=== PATIENT | male | born 1945 | race Caucasian/White ===

== ENCOUNTER 2016-04-10 20:30 | Emergency (ER) | payer MEDICARE, OTHER ==
[~2016-04-10 20:30] MED LIST: ATEN100T PO; BUPR100T4 PO; CLON0.1T PO; OMEP20TA PO; PARO40TA2 PO; ROPI1TAB PO; TAMS0.4C4 PO
[2016-04-10 20:34] VITALS: BP 146/93; PULSE 78; RESP 20; TEMP 97.8; TEMP 98.2; O2SAT 95
[2016-04-10 21:13] LABS: AUTOMATED NEUTROPHIL # 11.4 TH/MM3 (1.8-7.7); BASOPHIL # 0.1 TH/MM3 (0-0.2); BASOPHIL % 0.8 % (0.0-2.0); EOSINOPHIL # 0.3 TH/MM3 (0-0.4); EOSINOPHIL % 1.9 % (0.0-4.0); HEMATOCRIT 43.4 % (39.0-51.0); HEMO FLAGS DIFF FINAL; LYMPH % 19.9 % (9.0-44.0); LYMPHOCYTE # 3.4 TH/MM3 (1.0-4.8); MEAN CELL VOLUME 97.3 FL (80.0-100.0); MEAN CORPUSCULAR HEMOGLOBIN 33.5 PG (27.0-34.0); MEAN CORPUSCULAR HGB CONC 34.4 % (32.0-36.0); MONO % 10.6 % (0.0-8.0); NEUT % 66.8 % (16.0-70.0); PLATELET COUNT 221 TH/MM3 (150-450); RED BLOOD COUNT 4.46 MIL/MM3 (4.50-5.90); RED CELL DISTRIBUTION WIDTH 14.5 % (11.6-17.2)
[2016-04-10 21:30] LABS: ANION GAP 9 MEQ/L (5-15)
[2016-04-10 21:34] LABS: ALKALINE PHOSPHATASE 86 U/L (45-117); ALT (GPT) 24 U/L (12-78); AST (GOT) 19 U/L (15-37); BICARBONATE 27.5 MEQ/L (21.0-32.0); BLOOD UREA NITROGEN 12 MG/DL (7-18); CHLORIDE 103 MEQ/L (98-107); GLOMERULAR FILTRATION RATE 88 ML/MIN (>89); POTASSIUM 3.6 MEQ/L (3.5-5.1); SODIUM (NA) 139 MEQ/L (136-145); TOTAL BILIRUBIN ADULT 1.2 MG/DL (0.2-1.0)
[2016-04-10 21:42] LABS: ACETAMINOPHEN LESS THAN 2.0 MCG/ML (10.0-30.0)
[2016-04-11 00:32] LABS: AMPHETAMINE, URINE NEG (NEG); BARBITURATES, URINE NEG (NEG); COCAINE, URINE NEG (NEG)
--- NOTE | 2016-04-11 00:46 | RADRPT ---
EXAM DATE/TIME: 04/11/2016 00:11 [facility] COMPARISON: CT BRAIN W/O CONTRAST, February 26, 2015, 20:09. INDICATIONS : Trauma; fell and hit forehead. RADIATION DOSE: 56.35 CTDIvol (mGy) MEDICAL HISTORY : Hepatitis C. Hepatitis B. Hypertension. SURGICAL HISTORY : Prostatectomy. Splenectomy. ENCOUNTER: Initial ACUITY: 1 day PAIN SCALE: 2/10 LOCATION: cranial TECHNIQUE: Multiple contiguous axial images were obtained of the head. Using automated exposure control and adj ustment of the mA and/or kV according to patient size, radiation dose was kept as low as reasonably a chievable to obtain optimal diagnostic quality images. FINDINGS: CEREBRUM: The ventricles and cortical sulci are mildly widened. No evidence of midline shift, mass lesion, hem orrhage or acute infarction. There is an old lacunar infarct in the posterior left basal ganglia. No extra-axial fluid collections are seen. POSTERIOR FOSSA: The cerebellum and brainstem are intact. The 4th ventricle is midline. The cerebellopontine angle i s unremarkable. EXTRACRANIAL: The visualized portion of the orbits is intact. There is right frontal scalp swelling. SKULL: The patient is status post right craniotomy. No evidence of skull fracture. CONCLUSION: 1. No acute intracranial abnormalities seen. 2. Left basal ganglia lacunar infarct. 3. Mild right frontal scalp swelling. Shashank Castaneda MD on April 11, 2016 at 0:42 Board Certified Radiologist. This report was verified electronically.
--- NOTE | 2016-04-11 01:01 | PD ---
HPI Chief Complaint: Alcohol/Drug Intoxication Time Seen by Provider: 20:46 Travel History International Travel<30 days: No Contact w/Intl Traveler<30days: No Traveled to known affect area: No History of Present Illness HPI The patient is 70 years old. He arrives as a niño act. He evidently took extra Xanax tonight and drank vodka. Upon attempting to step out of bed he fell forward striking his forehead. He has no specific medical complaints in the ER. His girlfriend called EMS after fall occurred. Evidently the patient has a history of substance abuse. He took his girlfriend's Xanax. PFSH Past Medical History Blood Disorders: No Depression: Yes Heart Rhythm Problems: No Cancer: No Cardiovascular Problems: Yes High Cholesterol: No Chest Pain: No Congestive Heart Failure: No Diminished Hearing: No Endocrine: No Gastrointestinal Disorders: Yes (hep C and B) Genitourinary: Yes Hepatitis: Yes (c) Hypertension: Yes Immune Disorder: No Musculoskeletal: No Psychiatric: No Reproductive: Yes (BPH) Respiratory: No Immunizations Current: No Past Surgical History Genitourinary Surgery: Yes (prostate removed) Other Surgery: Yes (74 spleen removed , plate in head ) Social History Alcohol Use: Yes (1/2 gallon vodka daily) Tobacco Use: Yes (2 cigs a day ) Substance Use: Yes (suboxone) Allergies-Medications (Allergen,Severity, Reaction): Coded Allergies: No Known Allergies (Unverified , 04/10/16) Reported Meds & Prescriptions Reported Meds & Active Scripts Active Reported Paroxetine (Paroxetine HCl) 40 Mg Tab 40 Mg PO DAILY Bupropion HCl 100 Mg Tab 100 Mg PO HS Omeprazole 20 Mg Tab 20 Mg PO DAILY Ropinirole 1 Mg Tab 1 Mg PO BID Tamsulosin (Tamsulosin HCl) 0.4 Mg Cap 0.4 Mg PO HS Clonidine (Clonidine HCl) 0.1 Mg Tab 0.1 Mg PO TID Atenolol 100 Mg Tab 100 Mg PO DAILY Review of Systems Except as stated in HPI: all other systems reviewed are Neg Physical Exam Narrative GENERAL: 70-year-old male, well-nourished well-developed no acute distress SKIN: Warm and dry. HEAD: Atraumatic. Normocephalic. Trace contusion and abrasion about the forehead. EYES: Pupils equal and round. No scleral icterus. No injection or drainage. ENT: No nasal bleeding or discharge. Mucous membranes pink and moist. NECK: Trachea midline. No JVD. CARDIOVASCULAR: Regular rate and rhythm. No murmur appreciated. RESPIRATORY: No accessory muscle use. Clear to auscultation. Breath sounds equal bilaterally. GASTROINTESTINAL: Abdomen soft, non-tender, nondistended. Hepatic and splenic margins not palpable. MUSCULOSKELETAL: No obvious deformities. No clubbing. No cyanosis. No edema. NEUROLOGICAL: Awake and alert. No obvious cranial nerve deficits. Motor grossly within normal limits. Normal speech. PSYCHIATRIC: Appropriate mood and affect; insight and judgment normal. Data Data Last Documented VS Vital Signs Date Time Temp Pulse Resp B/P Pulse Ox O2 Delivery O2 Flow Rate FiO2 04/10/16 20:34 98.2 78 20 146/93 95 Vital signs reviewed Orders Complete Blood Count With Diff (04/10/16 20:46) Comprehensive Metabolic Panel (04/10/16 20:46) Iv Access Insert/Monitor (04/10/16 20:46) Ecg Monitoring (04/10/16 20:46) Psych Screen (04/10/16 20:46) Drug Screen, Random Urine (04/10/16 20:46) Alcohol (Ethanol) (04/10/16 20:46) Salicylates (Aspirin) (04/10/16 20:46) Tylenol (Acetaminophen) (04/10/16 20:46) Ct Brain W/O Iv Contrast(Rout) (04/10/16 23:46) Labs Laboratory Tests Test 04/10/16 04/10/16 20:50 22:00 White Blood Count 17.0 TH/MM3 Red Blood Count 4.46 MIL/MM3 Hemoglobin 14.9 GM/DL Hematocrit 43.4 % Mean Corpuscular Volume 97.3 FL Mean Corpuscular Hemoglobin 33.5 PG Mean Corpuscular Hemoglobin 34.4 % Concent Red Cell Distribution Width 14.5 % Platelet Count 221 TH/MM3 Mean Platelet Volume 10.5 FL Neutrophils (%) (Auto) 66.8 % Lymphocytes (%) (Auto) 19.9 % Monocytes (%) (Auto) 10.6 % Eosinophils (%) (Auto) 1.9 % Basophils (%) (Auto) 0.8 % Neutrophils # (Auto) 11.4 TH/MM3 Lymphocytes # (Auto) 3.4 TH/MM3 Monocytes # (Auto) 1.8 TH/MM3 Eosinophils # (Auto) 0.3 TH/MM3 Basophils # (Auto) 0.1 TH/MM3 CBC Comment DIFF FINAL Differential Comment Sodium Level 139 MEQ/L Potassium Level 3.6 MEQ/L Chloride Level 103 MEQ/L Carbon Dioxide Level 27.5 MEQ/L Anion Gap 9 MEQ/L Blood Urea Nitrogen 12 MG/DL Creatinine 0.86 MG/DL Estimat Glomerular Filtration 88 ML/MIN Rate Random Glucose 85 MG/DL Calcium Level 8.3 MG/DL Total Bilirubin 1.2 MG/DL Aspartate Amino Transf 19 U/L (AST/SGOT) Alanine Aminotransferase 24 U/L (ALT/SGPT) Alkaline Phosphatase 86 U/L Total Protein 7.2 GM/DL Albumin 3.2 GM/DL Salicylates Level LESS THAN 1.7 MG/DL Acetaminophen Level LESS THAN 2.0 MCG/ML Ethyl Alcohol Level LESS THAN 3 MG/DL Urine Opiates Screen NEG Urine Barbiturates Screen NEG Urine Amphetamines Screen NEG Urine Benzodiazepines Screen POS Urine Cocaine Screen NEG Urine Cannabinoids Screen NEG MDM Medical Decision Making Medical Screen Exam Complete: Yes Emergency Medical Condition: Yes Medical Record Reviewed: Yes Differential Diagnosis Altered mental status/psychosis due to infection/environmental exposure/ metabolic abnormality, polypharmacy, alcohol abuse/intoxication, illicit or prescribed drug abuse, malingering/secondary gain, non-organic psychiatric disease Narrative Course The history of present illness, ROS, physical exam, review of records and medical workup performed for today's visit have reasonably safely excluded organic etiologies for the patient's presenting complaint. We will continue to monitor the patient carefully in the ER until time of evaluation by the psychiatry service. We are available for any additional medical assistance if needed during the patient's ER course. Disposition per discretion of psychiatry is appreciated. CBC & BMP Diagram 04/10/16 20:50 LFTs normal Urine toxicology positive for benzodiazepines Alcohol negative Diagnosis Primary Impression: Fall Qualified Code: W19.XXXA - Fall, initial encounter Additional Impression: Benzodiazepine misuse Ottoniel Al MD Apr 11, 2016 01:01
[2016-04-11 01:02] VITALS: BP 191/96; PULSE 75; RESP 16; O2SAT 96
[2016-04-11 03:41] VITALS: BP 156/89; PULSE 75; RESP 14; O2SAT 96
[2016-04-11 06:18] VITALS: BP 144/79; PULSE 70; RESP 17; TEMP 98.9; O2SAT 98
--- NOTE | 2016-04-11 10:40 | PD ---
History of Present Illness Chief Complaint: Alcohol/Drug Intoxication Time Seen by Provider: 10:10 Travel History International Travel<30 Days: No Contact w/Intl Traveler<30days: No Known affected area: No Legal Status Legal Status: Jacques Act Jacques Act Signed By: MIGUELITO GUTIÉRREZ POLICE History of Present Illness: History of Present Illness HPI The patient is 70 year old male with history of alcohol dependence and depression who presents as a BA initiated by DEBBIE. As per the report the patient' s girlfriend called EMS after he took some Xanax along with vodka and sustained a fall. He was BA as he was found intoxicated. Patient denied that this was a suicide attempt. Patient has had no previous contact with [facility] psychiatry dept. He was admitted in May of 2015 for detoxification as a recommendation from Dr. Galdamez his career specialist. This morning the patient is wake, alert and oriented. His speech is slight slurred as well as he is walking with a slight limp. He reports that he has a dx of cerebral palsy and that this is his baseline. There are no tremors. No psychosis and no luis. He denies any suicidal ideation, intent or plan. He alleges that he has been sober x 8 months and that yesterday was the first time that he drank. He is active in AA. He denies any depression and claims he took his girlfriend's Xanax " to go to sleep". Staff is instructed to contact his girlfriend to obtain further information. PFSH Past Medical History Blood Disorders: No Depression: Yes Heart Rhythm Problems: No Cancer: No Cardiovascular Problems: Yes High Cholesterol: No Chest Pain: No Congestive Heart Failure: No Diminished Hearing: No Endocrine: No Gastrointestinal Disorders: Yes (hep C and B) Genitourinary: Yes Hepatitis: Yes (c) Hypertension: Yes Immune Disorder: No Musculoskeletal: No Psychiatric: No Reproductive: Yes (BPH) Respiratory: No Immunizations Current: No Past Surgical History Genitourinary Surgery: Yes (prostate removed) Other Surgery: Yes (74 spleen removed , plate in head ) Psychiatric History Psychiatric History Hx Psychiatric Treatment: HX: DEPRESSION being tretaed by his PCP. On Wellbutrin and Paxil History of Inpatient Treatment: No Guns or firearms in home: No Social History Single male. Born in [place] In [place] 11 years. retired heavy truck mechanic. Hx Alcohol Use: Yes (1/2 gallon vodka daily) Hx Tobacco Use: Yes (2 cigs a day ) Hx Substance Use: Yes (ALCOHOL) Hx of Substance Use Treatment: Yes ([facility] x 3. ) Family Psychiatric History Negative Allergies-Medications (Allergen,Severity, Reaction): Coded Allergies: No Known Allergies (Unverified , 04/10/16) Reported Meds & Prescriptions Reported Meds & Active Scripts Active Reported Paroxetine (Paroxetine HCl) 40 Mg Tab 40 Mg PO DAILY Bupropion HCl 100 Mg Tab 100 Mg PO HS Omeprazole 20 Mg Tab 20 Mg PO DAILY Ropinirole 1 Mg Tab 1 Mg PO BID Tamsulosin (Tamsulosin HCl) 0.4 Mg Cap 0.4 Mg PO HS Clonidine (Clonidine HCl) 0.1 Mg Tab 0.1 Mg PO TID Atenolol 100 Mg Tab 100 Mg PO DAILY Review of Systems Constitutional: DENIES: Diaphoretic episodes, Fatigue, Fever, Weight gain, Weight loss, Chills, Dizziness, Change in appetite, Night Sweats Endocrine: DENIES: Heat/cold intolerance, Polydipsia, Polyuria, Polyphagia Eyes: DENIES: Blurred vision, Diplopia, Eye inflammation, Eye pain, Vision loss , Photosensitivity, Double Vision Ears, nose, mouth, throat: DENIES: Tinnitus, Hearing loss, Vertigo, Nasal discharge, Oral lesions, Throat pain, Hoarseness, Ear Pain, Running Nose, Epistaxis, Sinus Pain, Toothache, Odynophagia Respiratory: DENIES: Apneas, Cough, Snoring, Wheezing, Hemoptysis, Sputum production, Shortness of breath Cardiovascular: DENIES: Chest pain, Palpitations, Syncope, Dyspnea on Exertion , PND, Lower Extremity Edema, Orthopnea, Claudication Gastrointestinal: DENIES: Abdominal pain, Black stools, Bloody stools, Constipation, Diarrhea, Nausea, Vomiting, Difficulty Swallowing, Anorexia Genitourinary: DENIES: Sexual dysfunction, Urinary frequency, Urinary incontinence, Urgency, Hematuria, Dysuria, Nocturia, Penile Discharge, Testicular Pain, Testicular Swelling Musculoskeletal: COMPLAINS OF: Muscle aches Integumentary: DENIES: Abnormal pigmentation, Nail changes, Pruritus, Rash Hematologic/lymphatic: DENIES: Bruising, Lymphadenopathy Immunologic/allergic: DENIES: Eczema, Urticaria Neurologic: COMPLAINS OF: Abnormal gait, Speech Problems (sl slurred) Psychiatric: COMPLAINS OF: Depression Exam Alert: Yes [place]: Person (ox4) Mood: Calm Affect: Euthymic Speech: Clear, Logical Eye Contact: Normal Memory Intact: Comment (no gross abnormality) Delusions: No Suicidal: Ideation (denies any) Homicidal: Ideation (denies) Insight/Judgement fair. poor MDM Medical Decision Making Medical Record Reviewed: Yes Assessment/Plan 70 year old male with history of alcohol dependence who after reported 8 months of sobriety drank 2 glasses of vodka . Later in the evening he took 2 Xanax in order to fall asleep. He fell and his girlfriend called as he had la laceration. Patient denies that he took the Xanax as a suicidal gesture. he denies any suicidal or homicidal ideation, intent or plan at this time. He is requesting discharge and does not meet criteria for BA. BA will be lifted. Discharge to home Follow up with outpatient care. Abstinence is recommended. Orders Complete Blood Count With Diff (04/10/16 20:46) Comprehensive Metabolic Panel (04/10/16 20:46) Iv Access Insert/Monitor (04/10/16 20:46) Ecg Monitoring (04/10/16 20:46) Psych Screen (04/10/16 20:46) Drug Screen, Random Urine (04/10/16 20:46) Alcohol (Ethanol) (04/10/16 20:46) Salicylates (Aspirin) (04/10/16 20:46) Tylenol (Acetaminophen) (04/10/16 20:46) Ct Brain W/O Iv Contrast(Rout) (04/10/16 23:46) Diet Regular Basic (04/11/16 Breakfast) Diet Regular Basic (04/11/16 Lunch) Results Vital Signs Date Time Temp Pulse Resp B/P Pulse Ox O2 Delivery O2 Flow Rate FiO2 04/11/16 06:18 98.9 70 17 144/79 98 04/11/16 03:41 75 14 156/89 96 Room Air 04/11/16 01:02 75 16 191/96 96 Nasal Cannula 2 04/10/16 20:34 98.2 78 20 146/93 95 Laboratory Tests Test 04/10/16 04/10/16 20:50 22:00 White Blood Count 17.0 Red Blood Count 4.46 Hemoglobin 14.9 Hematocrit 43.4 Mean Corpuscular Volume 97.3 Mean Corpuscular Hemoglobin 33.5 Mean Corpuscular Hemoglobin 34.4 Concent Red Cell Distribution Width 14.5 Platelet Count 221 Mean Platelet Volume 10.5 Neutrophils (%) (Auto) 66.8 Lymphocytes (%) (Auto) 19.9 Monocytes (%) (Auto) 10.6 Eosinophils (%) (Auto) 1.9 Basophils (%) (Auto) 0.8 Neutrophils # (Auto) 11.4 Lymphocytes # (Auto) 3.4 Monocytes # (Auto) 1.8 Eosinophils # (Auto) 0.3 Basophils # (Auto) 0.1 CBC Comment DIFF FINAL Differential Comment Sodium Level 139 Potassium Level 3.6 Chloride Level 103 Carbon Dioxide Level 27.5 Anion Gap 9 Blood Urea Nitrogen 12 Creatinine 0.86 Estimat Glomerular Filtration 88 Rate Random Glucose 85 Calcium Level 8.3 Total Bilirubin 1.2 Aspartate Amino Transf 19 (AST/SGOT) Alanine Aminotransferase 24 (ALT/SGPT) Alkaline Phosphatase 86 Total Protein 7.2 Albumin 3.2 Salicylates Level LESS THAN 1.7 Acetaminophen Level LESS THAN 2.0 Ethyl Alcohol Level LESS THAN 3 Urine Opiates Screen NEG Urine Barbiturates Screen NEG Urine Amphetamines Screen NEG Urine Benzodiazepines Screen POS Urine Cocaine Screen NEG Urine Cannabinoids Screen NEG Diagnosis Primary Impression: alcohol dependence Additional Impression: Benzodiazepine misuse Psychiatrically Cleared: Yes Med/ Other Pt Specific Info: No Change to Meds Disposition: 01 DISCHARGE HOME Condition: Stable Problem Qualifiers Tierra Bahena Apr 11, 2016 10:40
[2016-04-11 10:59] VITALS: BP 151/90; PULSE 90; RESP 18; TEMP 98.6; O2SAT 95
== END 2016-04-11 11:27 | disposition home or self-care (01) ==
LOC: NEPC 20:30 → NEPJ 04-11 11:27
DX: F10.20 Alcohol dependence, uncomplicated (principal); S09.90XA Unspecified injury of head, initial encounter; I10 Essential (primary) hypertension; N40.0 Benign prostatic hyperplasia without lower urinary tract symptoms; F17.210 Nicotine dependence, cigarettes, uncomplicated; B19.20 Unspecified viral hepatitis C without hepatic coma; B19.10 Unspecified viral hepatitis B without hepatic coma; G80.9 Cerebral palsy, unspecified; W19.XXXA Unspecified fall, initial encounter; Y92.003 Bedroom of unspecified non-institutional (private) residence as the place of occurrence of the external cause; Y99.8 Other external cause status
CPT/HCPCS: 70450; 80053; 80307; 80320; 80329; 85025; G0480

== ENCOUNTER 2016-09-28 10:16 | Emergency (ER) | payer MEDICARE, OTHER ==
[~2016-09-28] VITALS: Ht 167.6 cm; Wt 69.0 kg
[2016-09-28 10:22] VITALS: BP 141/92; PULSE 73; RESP 14; TEMP 98.2; O2SAT 94
[2016-09-28] MEDS ORDERED: SUBO2MIS SL (10:49)
[2016-09-28 11:51] LABS: BASOPHIL # 0.1 TH/MM3 (0-0.2); BASOPHIL % 1.5 % (0.0-2.0); EOSINOPHIL # 0.1 TH/MM3 (0-0.4); EOSINOPHIL % 1.2 % (0.0-4.0); HEMATOCRIT 45.5 % (39.0-51.0); LYMPHOCYTE # 1.7 TH/MM3 (1.0-4.8); MEAN CELL VOLUME 96.9 FL (80.0-100.0); MEAN CORPUSCULAR HEMOGLOBIN 31.8 PG (27.0-34.0); MEAN CORPUSCULAR HGB CONC 32.8 % (32.0-36.0); MONO % 9.1 % (0.0-8.0); NEUT % 66.2 % (16.0-70.0); PLATELET COUNT 270 TH/MM3 (150-450); RED CELL DISTRIBUTION WIDTH 14.8 % (11.6-17.2); WHITE BLOOD COUNT 7.6 TH/MM3 (4.0-11.0)
[2016-09-28 11:52] LABS: HEMO FLAGS DIFF FINAL
[2016-09-28 12:04] LABS: BICARBONATE 25.4 MEQ/L (21.0-32.0)
--- NOTE | 2016-09-28 12:50 | RADRPT ---
EXAM DATE/TIME: 09/28/2016 12:35 [facility] COMPARISON: CT BRAIN W/O CONTRAST, April 11, 2016, 0:11. INDICATIONS : Slurred speech and uncontrolled shaking since last night. Headache last night, but not today. RADIATION DOSE: 64.74 CTDIvol (mGy) MEDICAL HISTORY : Hepatitis B. Hepatitis C. Hypertension.Traumatic brain injury. Cerebral palsy. SURGICAL HISTORY : Craniotomy. Splenectomy.Prostatectomy. ENCOUNTER: Initial ACUITY: 1 day PAIN SCALE: 0/10 LOCATION: cranial TECHNIQUE: Multiple contiguous axial images were obtained of the head. Using automated exposure control and adj ustment of the mA and/or kV according to patient size, radiation dose was kept as low as reasonably a chievable to obtain optimal diagnostic quality images. DICOM format image data is available electro nically for review and comparison. FINDINGS: CEREBRUM: The ventricles are normal for age. No evidence of midline shift, mass lesion, hemorrhage or acute in farction. No extra-axial fluid collections are seen. POSTERIOR FOSSA: The cerebellum and brainstem demonstrate mild volume loss.. The 4th ventricle is midline. The cereb ellopontine angle is unremarkable. EXTRACRANIAL: The visualized portion of the orbits is intact. SKULL: Craniotomy defect is identified in the right temporoparietal region. This was seen previously and lucita ear stable. CONCLUSION: Stable appearance of the brain without evidence of acute infarct, hemorrhage, mass or edema. Status post right-sided craniotomy. Jermaine Dunn MD on September 28, 2016 at 12:45 Board Certified Radiologist. This report was verified electronically.
[2016-09-28 13:00] VITALS: BP 133/89; PULSE 79; RESP 18; O2SAT 6; O2SAT 96
--- NOTE | 2016-09-28 13:19 | PD ---
HPI Chief Complaint: Neuro Symptoms/ Deficits Time Seen by Provider: 11:10 Travel History International Travel<30 days: No Contact w/Intl Traveler<30days: No Traveled to known affect area: No History of Present Illness HPI This 71-year-old male says that he felt like his left arm was a bit weak yesterday. He felt like he was slurring his words the lady was with told him his words were no more slurred than usual. Patient has a history of cerebral palsy and has a left-sided weakness. He also has a plate in his head he says from an injury at the age of 20. He has not had headache. He says he feels fine now. He does have a history of alcohol abuse but says he was not drinking last night PFSH Past Medical History Blood Disorders: No Depression: Yes Heart Rhythm Problems: No Cancer: No Cardiovascular Problems: Yes High Cholesterol: No Chest Pain: No Congestive Heart Failure: No Diminished Hearing: No Endocrine: No Gastrointestinal Disorders: Yes (hep C and B) Genitourinary: Yes Hepatitis: Yes (c) Hypertension: Yes Immune Disorder: No Musculoskeletal: No Psychiatric: No Reproductive: Yes (BPH) Respiratory: No Immunizations Current: No Past Surgical History Genitourinary Surgery: Yes (prostate removed) Other Surgery: Yes (74 spleen removed , plate in head ) Social History Alcohol Use: No (DENIES) Tobacco Use: Yes (2 cigs a day ) Substance Use: Yes (ALCOHOL) Allergies-Medications (Allergen,Severity, Reaction): Coded Allergies: No Known Allergies (Unverified , 04/10/16) Reported Meds & Prescriptions Reported Meds & Active Scripts Active Reported Suboxone Sublingual Film (Buprenorphine-Naloxone Sublingual Film) 2-0.5 Mg Film 1 Film SL DAILY Unique ID number required: Paroxetine (Paroxetine HCl) 40 Mg Tab 40 Mg PO DAILY Omeprazole 20 Mg Tab 20 Mg PO DAILY Ropinirole 1 Mg Tab 1 Mg PO BID Tamsulosin (Tamsulosin HCl) 0.4 Mg Cap 0.4 Mg PO HS Atenolol 100 Mg Tab 100 Mg PO DAILY Review of Systems General / Constitutional: No: Fever, Chills Eyes: No: Diploplia HENT: No: Headaches Cardiovascular: No: Chest Pain or Discomfort, Palpitations Respiratory: No: Cough, Shortness of Breath Gastrointestinal: No: Vomiting Genitourinary: No: Urgency, Frequency Musculoskeletal: No: Myalgias Physical Exam Narrative GENERAL: Well-developed male SKIN: Focused skin assessment warm/dry. HEAD: Atraumatic. Normocephalic. EYES: Pupils equal and round. No scleral icterus. No injection or drainage. ENT: No nasal bleeding or discharge. Mucous membranes pink and moist. NECK: Trachea midline. No JVD. CARDIOVASCULAR: Regular rate and rhythm. No murmur appreciated. RESPIRATORY: No accessory muscle use. Clear to auscultation. Breath sounds equal bilaterally. GASTROINTESTINAL: Abdomen soft, non-tender, nondistended. Hepatic and splenic margins not palpable. MUSCULOSKELETAL: No obvious deformities. No clubbing. No cyanosis. No edema. NEUROLOGICAL: Awake and alert. No obvious cranial nerve deficits. There is some left-sided facial weakness which has been present previously. PSYCHIATRIC: Appropriate mood and affect; insight and judgment normal. Data Data Last Documented VS Vital Signs Date Time Temp Pulse Resp B/P Pulse Ox O2 Delivery O2 Flow Rate FiO2 09/28/16 13:00 79 18 133/89 96 Room Air 09/28/16 10:22 98.2 Orders Complete Blood Count With Diff (09/28/16 11:15) Basic Metabolic Panel (Bmp) (09/28/16 11:15) Ct Brain W/O Iv Contrast(Rout) (09/28/16 11:15) Labs Laboratory Tests Test 09/28/16 11:38 White Blood Count 7.6 TH/MM3 Red Blood Count 4.70 MIL/MM3 Hemoglobin 14.9 GM/DL Hematocrit 45.5 % Mean Corpuscular Volume 96.9 FL Mean Corpuscular Hemoglobin 31.8 PG Mean Corpuscular Hemoglobin 32.8 % Concent Red Cell Distribution Width 14.8 % Platelet Count 270 TH/MM3 Mean Platelet Volume 9.7 FL Neutrophils (%) (Auto) 66.2 % Lymphocytes (%) (Auto) 22.0 % Monocytes (%) (Auto) 9.1 % Eosinophils (%) (Auto) 1.2 % Basophils (%) (Auto) 1.5 % Neutrophils # (Auto) 5.0 TH/MM3 Lymphocytes # (Auto) 1.7 TH/MM3 Monocytes # (Auto) 0.7 TH/MM3 Eosinophils # (Auto) 0.1 TH/MM3 Basophils # (Auto) 0.1 TH/MM3 CBC Comment DIFF FINAL Differential Comment Sodium Level 140 MEQ/L Potassium Level 4.0 MEQ/L Chloride Level 105 MEQ/L Carbon Dioxide Level 25.4 MEQ/L Anion Gap 10 MEQ/L Blood Urea Nitrogen 12 MG/DL Creatinine 0.66 MG/DL Estimat Glomerular Filtration 120 ML/MIN Rate Random Glucose 82 MG/DL Calcium Level 8.7 MG/DL MDM Medical Decision Making Medical Screen Exam Complete: Yes Emergency Medical Condition: Yes Medical Record Reviewed: Yes Differential Diagnosis Differential includes CVA, cerebral palsy, Narrative Course CT is read as negative. Patient appears in his usual state this time. He is stable for discharge Diagnosis Primary Impression: Weakness Disposition: 01 DISCHARGE HOME Condition: Stable Colby Bo MD Sep 28, 2016 13:19
== END 2016-09-28 13:34 | disposition home or self-care (01) ==
LOC: PHED 10:16
DX: R53.1 Weakness (principal); I10 Essential (primary) hypertension; G80.9 Cerebral palsy, unspecified; Z72.0 Tobacco use; Z86.59 Personal history of other mental and behavioral disorders; Z86.79 Personal history of other diseases of the circulatory system; Z87.19 Personal history of other diseases of the digestive system; Z87.448 Personal history of other diseases of urinary system; Z86.19 Personal history of other infectious and parasitic diseases; Z87.438 Personal history of other diseases of male genital organs
CPT/HCPCS: 70450; 80048; 85025; 99284

== ENCOUNTER 2016-10-04 19:11 | Emergency (ER) | payer MEDICARE, OTHER ==
[~2016-10-04] VITALS: Ht 167.6 cm; Wt 68.2 kg
[~2016-10-04 19:11] MED LIST changes: -BUPR100T4 PO; -CLON0.1T PO; +SUBO2MIS SL
[2016-10-04] MEDS ORDERED: SODIUM CHLOR 0.9% 1000 ML INJ 1,000 ML IV ONE ×2 (19:14→22:00)
[2016-10-04] MEDS ORDERED: SODIUM CHLORIDE 0.9% FLUSH 10 ML FLUSH IVF PRN (19:15)
[2016-10-04 19:19] VITALS: BP 99/67; PULSE 101; RESP 16; TEMP 98.5; O2SAT 94
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
[2016-10-04 19:26] VITALS: RESP 16; O2SAT 95
[2016-10-04 19:31] LABS: AUTOMATED NEUTROPHIL # 4.4 TH/MM3 (1.8-7.7); BASOPHIL # 0.1 TH/MM3 (0-0.2); BASOPHIL % 1.6 % (0.0-2.0); EOSINOPHIL # 0.5 TH/MM3 (0-0.4); EOSINOPHIL % 5.6 % (0.0-4.0); HEMATOCRIT 43.4 % (39.0-51.0); HEMO FLAGS DIFF FINAL; LYMPH % 32.1 % (9.0-44.0); LYMPHOCYTE # 2.9 TH/MM3 (1.0-4.8); MEAN CORPUSCULAR HEMOGLOBIN 31.8 PG (27.0-34.0); MEAN CORPUSCULAR HGB CONC 33.1 % (32.0-36.0); MONO % 11.4 % (0.0-8.0); NEUT % 49.3 % (16.0-70.0); PLATELET COUNT 243 TH/MM3 (150-450); RED BLOOD COUNT 4.52 MIL/MM3 (4.50-5.90); RED CELL DISTRIBUTION WIDTH 14.6 % (11.6-17.2); WHITE BLOOD COUNT 8.9 TH/MM3 (4.0-11.0)
--- NOTE | 2016-10-04 19:47 | RADRPT ---
EXAM DATE/TIME: 10/04/2016 19:36 [facility] COMPARISON: No previous studies available for comparison. INDICATIONS : Palpitations. MEDICAL HISTORY : Hepatitis B. Hepatitis C. Hypertension.Traumatic brain injury. Cerebral palsy. SURGICAL HISTORY : Craniotomy. Splenectomy.Prostatectomy ENCOUNTER: Initial ACUITY: 1 day PAIN SCORE: 0/10 LOCATION: Bilateral chest FINDINGS: Minimal atelectasis seen at both lung bases. No pleural effusion. No pneumothorax. Heart size normal. CONCLUSION: Minimal bibasilar atelectasis. Otherwise negative one view chest x-ray. Shashank Ramos MD on October 04, 2016 at 19:45 Board Certified Radiologist. This report was verified electronically.
[2016-10-04 19:48] LABS: CHLORIDE 105 MEQ/L (98-107); POTASSIUM 3.5 MEQ/L (3.5-5.1); SODIUM (NA) 137 MEQ/L (136-145)
[2016-10-04 19:51] LABS: ANION GAP 11 MEQ/L (5-15); BICARBONATE 21.1 MEQ/L (21.0-32.0); BLOOD UREA NITROGEN 17 MG/DL (7-18); MAGNESIUM 2.1 MG/DL (1.5-2.5)
[2016-10-04 19:54] LABS: GLOMERULAR FILTRATION RATE 102 ML/MIN (>89)
[2016-10-04 19:55] LABS: APTT (PATIENT) 27.3 SEC (24.3-30.1); PROTHROMBIN TIME - PATIENT 10.7 SEC (9.8-11.6)
[2016-10-04 20:08] LABS: ALCOHOL 170 MG/DL (0-5)
[2016-10-04 20:43] LABS: BLOOD, URINE NEG (NEG); GLUCOSE,URINE NEG (NEG); KETONE, URINE NEG (NEG); NITRITE,URINE NEG (NEG)
--- NOTE | 2016-10-04 20:52 | RADRPT ---
EXAM DATE/TIME: 10/04/2016 20:26 [facility] COMPARISON: CT BRAIN W/O CONTRAST, September 28, 2016, 12:35. INDICATIONS : Dizziness. Fall. RADIATION DOSE: 63.13 CTDIvol (mGy) MEDICAL HISTORY : Hypertension. Hepatitis B. Hepatitis C. SURGICAL HISTORY : Craniotomy. Prostatectomy.Splenectomy. ENCOUNTER: Initial ACUITY: 1 day PAIN SCALE: 0/10 LOCATION: Bilateral cranial TECHNIQUE: Multiple contiguous axial images were obtained of the head. Using automated exposure control and adj ustment of the mA and/or kV according to patient size, radiation dose was kept as low as reasonably a chievable to obtain optimal diagnostic quality images. DICOM format image data is available electro nically for review and comparison. FINDINGS: CEREBRUM: The ventricles are normal for age. No evidence of midline shift, mass lesion, hemorrhage or acute in farction. No extra-axial fluid collections are seen. POSTERIOR FOSSA: The cerebellum and brainstem are intact. The 4th ventricle is midline. The cerebellopontine angle i s unremarkable. EXTRACRANIAL: Right temporoparietal craniotomy changes are again noted. SKULL: The calvaria is intact. No evidence of skull fracture. CONCLUSION: No acute intracranial abnormality. Previous craniotomy on the right. Shashank Ramos MD on October 04, 2016 at 20:50 Board Certified Radiologist. This report was verified electronically.
[2016-10-04 20:56] LABS: URINE COLOR YELLOW (YELLW/STRAW)
[2016-10-04 20:57] LABS: COMMENT (UR) CULT NOT INDICATED; CULTURE IF INDICATED CULT NOT INDICATED; RBC, URINE 0-3 /hpf (0-3); SQUAMOUS EPITHELIAL CELL URINE 0-5 /hpf (0-5); WBC, URINE 0-2 /hpf (0-5)
--- NOTE | 2016-10-04 20:58 | RADRPT ---
EXAM DATE/TIME: 10/04/2016 20:26 [facility] COMPARISON: No previous studies available for comparison. INDICATIONS : Dizziness. Fall. RADIATION DOSE: 26.43 CTDIvol (mGy) MEDICAL HISTORY : Hepatitis B. Hepatitis C. Hypertension. SURGICAL HISTORY : Craniotomy. Splenectomy.Prostatectomy. ENCOUNTER: Initial ACUITY: 1 day PAIN SCALE: 0/10 LOCATION: neck TECHNIQUE: Volumetric scanning of the cervical spine was performed. Multiplanar reconstructions in the sagittal, coronal and oblique axial planes were performed. Using automated exposure control and adjustment o f the mA and/or kV according to patient size, radiation dose was kept as low as reasonably achievable to obtain optimal diagnostic quality images. DICOM format image data is available electronically f or review and comparison. FINDINGS: Cervical spine alignment is normal. Vertebral bodies have normal height. No cortical break or trabecu lar disruption. Perivertebral soft tissues are within normal limits. There is disc space narrowing with uncovertebral and facet osteoarthritis, severe at C4/C5, C5/C6 and C6/C7, moderate at C2/C3 and C3/C4. There is moderate osteoarthritis anteriorly also seen at C1/C2. There is bilateral foraminal stenosis which is generally right worse than left at C4/C5 and C5/C6, le ft worse than right at C6/C7. No significant spinal stenosis demonstrated. CONCLUSION: Intact cervical spine. Multilevel degenerative changes as above. Shashank Ramos MD on October 04, 2016 at 20:54 Board Certified Radiologist. This report was verified electronically.
--- NOTE | 2016-10-04 20:59 | RADRPT ---
EXAM DATE/TIME: 10/04/2016 20:26 [facility] COMPARISON: No previous studies available for comparison. INDICATIONS : Dizziness. Fall. RADIATION DOSE: 25.60 CTDIvol (mGy) MEDICAL HISTORY : Hepatitis B. Hepatitis C. Hypertension. SURGICAL HISTORY : Craniotomy. Prostatectomy.Splenectomy. ENCOUNTER: Initial ACUITY: 1 day PAIN SCORE: 0/10 LOCATION: facial TECHNIQUE: Volumetric scanning of the facial bones was performed. Using automated exposure control and adjustme nt of the mA and/or kV according to patient size, radiation dose was kept as low as reasonably achiev able to obtain optimal diagnostic quality images. DICOM format image data is available electronicYouxinpai y for review and comparison. FINDINGS: ORBITS: The orbital and infraorbital osseous structures are intact. The retroconal structures have a normal configuration. No radiopaque foreign bodies are seen. NASAL BONE: The nasal bone and maxillary spine are intact ZYGOMATIC ARCHES: Symmetric without evidence of fracture. SINUSES: The maxillary, ethmoid and frontal sinuses are intact. No air-fluid levels seen. NASAL CAVITY: The nasal septum is intact and midline. The lacrimal ducts are intact. SOFT TISSUES: No radiopaque foreign bodies seen. No soft-tissue swelling is seen. INTRACRANIAL: No intracranial air seen. CRIBIFORM PLATE: Grossly intact. CONCLUSION: No facial fracture. Shashank Ramos MD on October 04, 2016 at 20:57 Board Certified Radiologist. This report was verified electronically.
[2016-10-04] MEDS ORDERED: THIAMINE INJ 100 MG in SODIUM CHLORIDE 0.9% INJ 100 ML IV ONE (22:00)
--- NOTE | 2016-10-05 00:22 | EKG ---
Date Performed: 10/04/2016 Time Performed: 19:42:37 PTAGE: 71 years EKG: Sinus rhythm NORMAL ECG NO PREVIOUS TRACING DOCTOR: David Al Interpretating Date/Time 10/05/2016 00:21:51
== END 2016-10-04 22:19 | disposition left against medical advice (07) ==
LOC: PHED 19:11
DX: S00.83XA Contusion of other part of head, initial encounter (principal); F10.10 Alcohol abuse, uncomplicated; I95.9 Hypotension, unspecified; Y90.6 Blood alcohol level of 120-199 mg/100 ml; F17.210 Nicotine dependence, cigarettes, uncomplicated; I10 Essential (primary) hypertension; B19.20 Unspecified viral hepatitis C without hepatic coma; N40.0 Benign prostatic hyperplasia without lower urinary tract symptoms; G80.9 Cerebral palsy, unspecified; W18.30XA Fall on same level, unspecified, initial encounter; Y93.9 Activity, unspecified; Y92.481 Parking lot as the place of occurrence of the external cause; B19.10 Unspecified viral hepatitis B without hepatic coma; R42 Dizziness and giddiness; Z90.81 Acquired absence of spleen; M48.02 Spinal stenosis, cervical region
CPT/HCPCS: 70450; 70486; 71010; 72125; 80048; 80307; 81001; 83735; 84484; 85025; 85610; 85730; 93005; 96360; 96361; 99285; J7030

== ENCOUNTER 2017-04-30 12:29 | Observation (INO) | payer MEDICARE, OTHER ==
[2017-04-30] VITALS (10 sets, daily range): BP systolic 105–153; BP diastolic 57–80; PULSE 65–97; RESP 14–20; TEMP 97.7–98.6; O2SAT 94–100
[~2017-04-30] VITALS: Ht 172.7 cm; Wt 68.0 kg
[~2017-04-30 12:29] MED LIST changes: -OMEP20TA PO; +OMEP20TA93 PO
[2017-04-30] MEDS ORDERED: SODIUM CHLOR 0.9% 1000 ML INJ 1,000 ML IV ONE ×2 (12:48→16:00)
--- NOTE | 2017-04-30 13:02 | PD ---
HPI Chief Complaint: Syncope/Near-Syncope Time Seen by Provider: 12:48 Travel History International Travel<30 days: No Contact w/Intl Traveler<30days: No History of Present Illness HPI Patient is a 71-year-old male presenting to the emergency department for evaluation after what appeared to be a syncopal episode. Per EMS they were initially called for a cardiac event. Patient was found unresponsive in the [facility] and a neighbor was performing CPR. EMS arrived on scene, patient had no EKG changes, he was arousable with a sternal rub. His blood pressure was noted to be in the 90s systolic, he was given 500 cc of normal saline and intranasal Narcan by EMS. Narcan did not significantly change patient's level of consciousness. Patient reports that he bent over to tie his shoe, got dizzy and passed out. He states that he did hit his head. At baseline patient has slow slurred speech with a left facial droop due to cerebral palsy. Symptom onset appears fairly sudden, symptom severity is moderate, symptoms were exacerbated with movement. Patient denies any chest pain, shortness breath, headache, abdominal pain, nausea, vomiting. 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 , plate in head ) Social History Alcohol Use: Yes Tobacco Use: No Substance Use: No Allergies-Medications (Allergen,Severity, Reaction): Coded Allergies: No Known Allergies (Unverified Adverse Reaction, Unknown, 04/30/17) Reported Meds & Prescriptions Reported Meds & Active Scripts Active Reported Suboxone Sublingual Film (Buprenorphine-Naloxone Sublingual Film) 2-0.5 Mg Film 1 Film SL DAILY Unique ID number required: Paroxetine (Paroxetine HCl) 40 Mg Tab 40 Mg PO DAILY Omeprazole 20 Mg Tab 20 Mg PO DAILY Ropinirole 1 Mg Tab 1 Mg PO BID Tamsulosin (Tamsulosin HCl) 0.4 Mg Cap 0.4 Mg PO HS Atenolol 100 Mg Tab 100 Mg PO DAILY Review of Systems ROS Limitations: Poor Historian Except as stated in HPI: all other systems reviewed are Neg HENT: No: Headaches, Neck Pain Cardiovascular: No: Chest Pain or Discomfort Respiratory: No: Shortness of Breath Gastrointestinal: No: Nausea, Vomiting, Abdominal Pain Neurologic: Positive: Dizziness, Syncope Physical Exam Narrative GENERAL: Well-developed, well-nourished, alert elderly gentleman. Presenting in no acute distress. SKIN: Warm and dry. HEAD: Atraumatic. Normocephalic. Contusion to posterior scalp EYES: Pupils equal and round, pinpoint. No scleral icterus. No injection or drainage. Extraocular movements are intact. ENT: No nasal bleeding or discharge. Mucous membranes pink and moist. NECK: Trachea midline. No JVD. CARDIOVASCULAR: Regular rate and rhythm. RESPIRATORY: No accessory muscle use. Clear to auscultation. Breath sounds equal bilaterally. GASTROINTESTINAL: Abdomen soft, non-tender, nondistended. Hepatic and splenic margins not palpable. MUSCULOSKELETAL: Extremities without clubbing, cyanosis, or edema. No obvious deformities. NEUROLOGICAL: Awake and alert. No obvious cranial nerve deficits. Motor grossly within normal limits. Five out of 5 muscle strength in the arms and legs. Slow speech. Slight left facial droop. PSYCHIATRIC: Appropriate mood and affect; insight and judgment normal. Data Data Last Documented VS Vital Signs Date Time Temp Pulse Resp B/P (MAP) Pulse Ox O2 Delivery O2 Flow Rate FiO2 04/30/17 15:23 61 18 123/76 (92) 71 18 126/71 (89) 04/30/17 13:30 99 Nasal Cannula 2.00 04/30/17 12:45 98.6 Orders Orders Electrocardiogram (04/30/17 ) Sepsis Workup Initiated (04/30/17 ) Complete Blood Count With Diff (04/30/17 12:48) Comprehensive Metabolic Panel (04/30/17 12:48) Prothrombin Time / Inr (Pt) (04/30/17 12:48) Act Partial Throm Time (Ptt) (04/30/17 12:48) Lactic Acid Sepsis Protocol (04/30/17 12:48) Magnesium (Mg) (04/30/17 12:48) Ckmb (Isoenzyme) Profile (04/30/17 12:48) Troponin I (04/30/17 12:48) Urinalysis - C+S If Indicated (04/30/17 12:48) Chest, Single Ap (04/30/17 12:48) Blood Glucose (04/30/17 12:48) Ecg Monitoring (04/30/17 12:48) Iv Access Insert/Monitor (04/30/17 12:48) Oximetry (04/30/17 12:48) Oxygen Administration (04/30/17 12:48) Ct Brain W/O Iv Contrast(Rout) (04/30/17 12:48) Sodium Chlor 0.9% 1000 Ml Inj (Ns 1000 M (04/30/17 12:48) Knee, Complete (4vws) (04/30/17 ) Alcohol (Ethanol) (04/30/17 12:51) Ammonia (04/30/17 12:51) Drug Screen, Random Urine (04/30/17 12:53) CKMB (04/30/17 13:15) CKMB% (04/30/17 13:15) Orthostatic Vital Signs (04/30/17 15:21) Sodium Chlor 0.9% 1000 Ml Inj (Ns 1000 M (04/30/17 16:00) Admit Order (Ed Use Only) (04/30/17 16:12) Operations Supervisor Chemical Cleaning / Telemetry BHARGAVI.[id number] (04/30/17 16:12) Vital Signs (Adult) Q4H (04/30/17 16:12) Diet Heart Healthy (04/30/17 Dinner) Activity Bed Rest (04/30/17 16:12) Notify Dr: Other (04/30/17 16:12) Labs Laboratory Tests Test 04/30/17 13:15 04/30/17 13:25 04/30/17 14:45 White Blood Count 12.6 TH/MM3 Red Blood Count 4.32 MIL/MM3 Hemoglobin 14.7 GM/DL Hematocrit 42.9 % Mean Corpuscular Volume 99.4 FL Mean Corpuscular Hemoglobin 34.0 PG Mean Corpuscular Hemoglobin Concent 34.2 % Red Cell Distribution Width 12.8 % Platelet Count 200 TH/MM3 Mean Platelet Volume 11.1 FL Neutrophils (%) (Auto) 66.0 % Lymphocytes (%) (Auto) 20.0 % Monocytes (%) (Auto) 11.8 % Eosinophils (%) (Auto) 1.5 % Basophils (%) (Auto) 0.7 % Neutrophils # (Auto) 8.3 TH/MM3 Lymphocytes # (Auto) 2.5 TH/MM3 Monocytes # (Auto) 1.5 TH/MM3 Eosinophils # (Auto) 0.2 TH/MM3 Basophils # (Auto) 0.1 TH/MM3 CBC Comment DIFF FINAL Differential Comment Prothrombin Time 10.9 SEC Prothromb Time International Ratio 1.1 RATIO Activated Partial Thromboplast Time 28.1 SEC Blood Urea Nitrogen 17 MG/DL Creatinine 1.10 MG/DL Random Glucose 90 MG/DL Total Protein 6.6 GM/DL Albumin 3.4 GM/DL Calcium Level 7.9 MG/DL Magnesium Level 2.0 MG/DL Alkaline Phosphatase 67 U/L Aspartate Amino Transf (AST/SGOT) 44 U/L Alanine Aminotransferase (ALT/SGPT) 28 U/L Total Bilirubin 0.6 MG/DL Sodium Level 143 MEQ/L Potassium Level 3.8 MEQ/L Chloride Level 109 MEQ/L Carbon Dioxide Level 27.1 MEQ/L Anion Gap 7 MEQ/L Estimat Glomerular Filtration Rate 66 ML/MIN Total Creatine Kinase 1594 U/L Creatine Kinase MB 10.9 NG/ML Creatine Kinase MB % 0.7 % Troponin I LESS THAN 0.02 NG/ML Ethyl Alcohol Level LESS THAN 3 MG/DL Lactic Acid Level 1.7 mmol/L Ammonia 12 MCMOL/L Urine Color YELLOW Urine Turbidity CLEAR Urine pH 8.0 Urine Specific [place] 1.016 Urine Protein TRACE mg/dL Urine Glucose (UA) NEG mg/dL Urine Ketones NEG mg/dL Urine Occult Blood NEG Urine Nitrite NEG Urine Bilirubin NEG Urine Urobilinogen LESS THAN 2.0 MG/DL Urine Leukocyte Esterase NEG Urine WBC 2 /hpf Urine Squamous Epithelial Cells <1 /hpf Urine Hyaline Casts 15 /lpf Urine Mucus FEW /lpf Microscopic Urinalysis Comment CULT NOT INDICATED Urine Opiates Screen NEG Urine Barbiturates Screen NEG Urine Amphetamines Screen NEG Urine Benzodiazepines Screen POS Urine Cocaine Screen NEG Urine Cannabinoids Screen POS MDM Medical Decision Making Medical Screen Exam Complete: Yes Emergency Medical Condition: Yes Medical Record Reviewed: Yes Interpretation(s) Vital Signs Date Time Temp Pulse Resp B/P (MAP) Pulse Ox O2 Delivery O2 Flow Rate FiO2 04/30/17 13:30 65 14 105/70 (82) 99 Nasal Cannula 2.00 04/30/17 13:07 83 16 100 Nasal Cannula 2.00 04/30/17 13:04 100 Nasal Cannula 2.00 04/30/17 13:04 18 99 Room Air 3/11/18 12:45 98.6 83 18 138/76 (07) 99 Differential Diagnosis Cardiac arrhythmia versus metabolic abnormality versus intoxication versus contusion versus hemorrhage versus other Narrative Course Patient is a 71-year-old male that presented for evaluation of a syncopal episode. Patient's vital signs are stable, labs and imaging ordered and pending. IV access established, patient placed on telemetry monitoring continuous pulse oximetry. Initial EKG shows normal sinus rhythm. Chest x-ray shows subsegmental basilar airspace disease most characteristic of atelectasis. No pneumothorax or effusion. CT of the head shows no acute intracranial abnormalities. Previous right craniotomy X-ray of the right knee is negative for acute fracture. Medial subluxation of the distal femur on the proximal tibia. Advanced osteoarthritis with postoperative changes. CBC with a white blood cell count of 12.6 Lactic acid 1.7 Chemistry with no acute findings Creatinine kinase 1594 Cardiac enzymes negative 1 set Urinalysis is unremarkable Urine drug screen is positive for benzodiazepines and marijuana Ammonia 12 Orthostatic vital signs were positive. Patient will be admitted for syncopal episode. Discussed with Dr. Paiz who accepted admit. Discussed possibility of septic arthritis in the right knee. Admit orders placed. Patient made aware of plan and findings. Diagnosis Primary Impression: Syncope Qualified Codes: R55 - Syncope and collapse Additional Impressions: Knee effusion Qualified Codes: M25.461 - Effusion, right knee Rhabdomyolysis Qualified Codes: M62.82 - Rhabdomyolysis Admitting Information Admitting Physician Requests: Observation Condition: Stable Carli Patton Apr 30, 2017 13:02
--- NOTE | 2017-04-30 13:22 | RADRPT ---
EXAM DATE/TIME: 04/30/2017 13:02 [facility] COMPARISON: CHEST SINGLE AP, October 04, 2016, 19:36. INDICATIONS : Syncope. MEDICAL HISTORY : Hepatitis B. Hepatitis C. Hypertension.Traumatic brain injury. Cerebral palsy. SURGICAL HISTORY : Craniotomy. Splenectomy.Prostatectomy ENCOUNTER: Initial ACUITY: 1 day PAIN SCORE: 0/10 LOCATION: Bilateral chest FINDINGS: A single view of the chest demonstrates subsegmental airspace disease at the bases. No effusion. No p neumothorax. Heart size within normal limits. Mildly tortuous aorta. CONCLUSION: 1. Subsegmental basilar airspace disease most characteristic of atelectasis. No effusion or pneumotho rax. Benitez Padilla MD on April 30, 2017 at 13:18 Board Certified Radiologist. This report was verified electronically.
--- NOTE | 2017-04-30 13:24 | RADRPT ---
EXAM DATE/TIME: 04/30/2017 13:03 [facility] COMPARISON: No previous studies available for comparison. INDICATIONS : Anterior knee pain. MEDICAL HISTORY : Hepatitis B. Hepatitis C. Hypertension.Traumatic brain injury. Cerebral palsy. SURGICAL HISTORY : Craniotomy. Splenectomy.Prostatectomy ENCOUNTER: Initial ACUITY: 1 day PAIN SCORE: 3/10 LOCATION: Right anterior knee. FINDINGS: There is medial subluxation of the distal femur on the proximal tibia with advanced osteoarthritis at the knee joint. U-shaped fixation pins are present overlying the medial and lateral femoral condyles . There is a small joint effusion. No acute fracture identified. CONCLUSION: 1. No acute fracture identified. Medial subluxation of the distal femur on the proximal tibia. Advanc ed osteoarthritis. Postop changes above. Benitez Padilla MD on April 30, 2017 at 13:20 Board Certified Radiologist. This report was verified electronically.
--- NOTE | 2017-04-30 13:43 | RADRPT ---
EXAM DATE/TIME: 04/30/2017 13:08 [facility] COMPARISON: No previous studies available for comparison. INDICATIONS : Syncope. RADIATION DOSE: 56.35 CTDIvol (mGy) MEDICAL HISTORY : Hepatitis B. Hepatitis C. SURGICAL HISTORY : Splenectomy. Prostatectomy.head surgery ENCOUNTER: Initial ACUITY: 1 day PAIN SCALE: Non-responsive LOCATION: Bilateral head TECHNIQUE: Multiple contiguous axial images were obtained of the head. Using automated exposure control and adj ustment of the mA and/or kV according to patient size, radiation dose was kept as low as reasonably a chievable to obtain optimal diagnostic quality images. DICOM format image data is available electro nically for review and comparison. FINDINGS: There is a lacunar infarct in the left periventricular white matter. No intracranial mass, hemorrhage or shift. No hydrocephalus. No recent infarct. No abnormal extra-axial fluid collections. Previous r ight craniotomy. CONCLUSION: 1. No acute intracranial abnormalities. Previous right craniotomy. Benitez Padilla MD on April 30, 2017 at 13:38 Board Certified Radiologist. This report was verified electronically.
[2017-04-30 13:53] LABS: AUTOMATED NEUTROPHIL # 8.3 TH/MM3 (1.8-7.7); BASOPHIL # 0.1 TH/MM3 (0-0.2); BASOPHIL % 0.7 % (0.0-2.0); EOSINOPHIL # 0.2 TH/MM3 (0-0.4); EOSINOPHIL % 1.5 % (0.0-4.0); HEMATOCRIT 42.9 % (39.0-51.0); HEMOGLOBIN 14.7 GM/DL (13.0-17.0); LYMPHOCYTE # 2.5 TH/MM3 (1.0-4.8); MEAN CELL VOLUME 99.4 FL (80.0-100.0); MEAN CORPUSCULAR HGB CONC 34.2 % (32.0-36.0); MEAN PLATELET VOLUME 11.1 FL (7.0-11.0); MONO % 11.8 % (0.0-8.0); MONOCYTE # 1.5 TH/MM3 (0-0.9); PLATELET COUNT 200 TH/MM3 (150-450); RED BLOOD COUNT 4.32 MIL/MM3 (4.50-5.90); RED CELL DISTRIBUTION WIDTH 12.8 % (11.6-17.2); WHITE BLOOD COUNT 12.6 TH/MM3 (4.0-11.0)
[2017-04-30 14:04] LABS: INTERNATIONAL NORMALIZED RATIO 1.1 RATIO; PROTHROMBIN TIME - PATIENT 10.9 SEC (9.8-11.6)
[2017-04-30 14:13] LABS: ALBUMIN 3.4 GM/DL (3.4-5.0); ALT (GPT) 28 U/L (12-78); AST (GOT) 44 U/L (15-37); BICARBONATE 27.1 MEQ/L (21.0-32.0); BLOOD UREA NITROGEN 17 MG/DL (7-18); CALCIUM 7.9 MG/DL (8.5-10.1); CHLORIDE 109 MEQ/L (98-107); GLOMERULAR FILTRATION RATE 66 ML/MIN (>89); GLUCOSE,RANDOM 90 MG/DL (74-106); SODIUM (NA) 143 MEQ/L (136-145)
[2017-04-30 14:27] LABS: ALKALINE PHOSPHATASE 67 U/L (45-117); TOTAL BILIRUBIN ADULT 0.6 MG/DL (0.2-1.0); TOTAL PROTEIN 6.6 GM/DL (6.4-8.2); TROPONIN I LESS THAN 0.02 NG/ML (0.02-0.05)
--- NOTE | 2017-04-30 14:29 | PD ---
Physical Exam Date Seen by Provider: Apr 30, 2017 Narrative Patient presents for evaluation following a syncopal event. He was found unresponsive in the lobby of his condominium. Data Data Last Documented VS Vital Signs Date Time Temp Pulse Resp B/P (MAP) Pulse Ox O2 Delivery O2 Flow Rate FiO2 04/30/17 13:30 65 14 105/70 (82) 99 Nasal Cannula 2.00 04/30/17 12:45 98.6 Orders Orders Electrocardiogram (04/30/17 ) Sepsis Workup Initiated (04/30/17 ) Complete Blood Count With Diff (04/30/17 12:48) Comprehensive Metabolic Panel (04/30/17 12:48) Prothrombin Time / Inr (Pt) (04/30/17 12:48) Act Partial Throm Time (Ptt) (04/30/17 12:48) Lactic Acid Sepsis Protocol (04/30/17 12:48) Magnesium (Mg) (04/30/17 12:48) Ckmb (Isoenzyme) Profile (04/30/17 12:48) Troponin I (04/30/17 12:48) Urinalysis - C+S If Indicated (04/30/17 12:48) Chest, Single Ap (04/30/17 12:48) Blood Glucose (04/30/17 12:48) Ecg Monitoring (04/30/17 12:48) Iv Access Insert/Monitor (04/30/17 12:48) Oximetry (04/30/17 12:48) Oxygen Administration (04/30/17 12:48) Ct Brain W/O Iv Contrast(Rout) (04/30/17 12:48) Sodium Chlor 0.9% 1000 Ml Inj (Ns 1000 M (04/30/17 12:48) Knee, Complete (4vws) (04/30/17 ) Alcohol (Ethanol) (04/30/17 12:51) Ammonia (04/30/17 12:51) Drug Screen, Random Urine (04/30/17 12:53) Labs Laboratory Tests Test 04/30/17 13:15 04/30/17 13:25 White Blood Count 12.6 TH/MM3 Red Blood Count 4.32 MIL/MM3 Hemoglobin 14.7 GM/DL Hematocrit 42.9 % Mean Corpuscular Volume 99.4 FL Mean Corpuscular Hemoglobin 34.0 PG Mean Corpuscular Hemoglobin Concent 34.2 % Red Cell Distribution Width 12.8 % Platelet Count 200 TH/MM3 Mean Platelet Volume 11.1 FL Neutrophils (%) (Auto) 66.0 % Lymphocytes (%) (Auto) 20.0 % Monocytes (%) (Auto) 11.8 % Eosinophils (%) (Auto) 1.5 % Basophils (%) (Auto) 0.7 % Neutrophils # (Auto) 8.3 TH/MM3 Lymphocytes # (Auto) 2.5 TH/MM3 Monocytes # (Auto) 1.5 TH/MM3 Eosinophils # (Auto) 0.2 TH/MM3 Basophils # (Auto) 0.1 TH/MM3 CBC Comment DIFF FINAL Differential Comment Prothrombin Time 10.9 SEC Prothromb Time International Ratio 1.1 RATIO Activated Partial Thromboplast Time 28.1 SEC Blood Urea Nitrogen 17 MG/DL Creatinine 1.10 MG/DL Random Glucose 90 MG/DL Albumin 3.4 GM/DL Calcium Level 7.9 MG/DL Magnesium Level 2.0 MG/DL Aspartate Amino Transf (AST/SGOT) 44 U/L Alanine Aminotransferase (ALT/SGPT) 28 U/L Sodium Level 143 MEQ/L Potassium Level 3.8 MEQ/L Chloride Level 109 MEQ/L Carbon Dioxide Level 27.1 MEQ/L Anion Gap 7 MEQ/L Estimat Glomerular Filtration Rate 66 ML/MIN Ethyl Alcohol Level LESS THAN 3 MG/DL Lactic Acid Level 1.7 mmol/L Ammonia 12 MCMOL/L MDM Supervised Visit with ISHA: Yes Narrative Course I, Dr. Jeffrey, have reviewed the advance practice practitioner's documentation and am in agreement, met with the patient face to face, made the diagnosis, and the medical decision making was done by me. *My assessment and Findings: Patient was resting comfortably when I went into see him. Respirations were nonlabored. He was subsequently awakened to obtain a urine sample. He was neurologically intact when awakened. Please see Carli Enrique NP's note for results of laboratory and radiographic evaluation, ED course, final diagnosis and disposition Breann Jeffrey MD Apr 30, 2017 14:29
[2017-04-30 15:45] LABS: BILIRUBIN, URINE NEG (NEG); BLOOD, URINE NEG (NEG); GLUCOSE,URINE NEG (NEG); HYALINE CAST, URINE 15 /lpf (RARE); KETONE, URINE NEG (NEG); MUCUS URINE FEW /lpf (OCC); NITRITE,URINE NEG (NEG); SQUAMOUS EPITHELIAL CELL URINE <1 /hpf (0-5); URINE COLOR YELLOW (YELLW/STRAW); URINE LEUKOCYTE ESTERASE NEG (NEG)
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
[2017-04-30] MEDS ORDERED: SODIUM CHLORIDE 0.9% FLUSH 10 ML FLUSH IV FLUSH PRN (16:30)
[2017-04-30] MEDS ORDERED: ACETAMINOPHEN 325 MG TAB PO PRN (21:30)
[2017-04-30] MEDS ORDERED: ONDANSETRON HCL 4 MG/2 ML VIAL IV PUSH PRN (21:30)
[2017-04-30] MEDS ORDERED: LORazepam 0.5 MG TAB PO PRN (21:30)
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
[2017-04-30] MEDS: SODIUM CHLORIDE 0.9% FLUSH 10 ML FLUSH IV FLUSH SCH (23:43)
[2017-05-01] VITALS (9 sets, daily range): BP systolic 97–173; BP diastolic 55–95; PULSE 70–91; RESP 16–18; TEMP 97.8–98.2; O2SAT 93–97
[2017-05-01] MEDS: SODIUM CHLORIDE 0.9% FLUSH 10 ML FLUSH IV FLUSH SCH ×2 (07:52→20:34)
[2017-05-01 08:52] LABS: AUTOMATED NEUTROPHIL # 4.9 TH/MM3 (1.8-7.7); BASOPHIL # 0.1 TH/MM3 (0-0.2); BASOPHIL % 1.1 % (0.0-2.0); EOSINOPHIL # 0.5 TH/MM3 (0-0.4); EOSINOPHIL % 4.3 % (0.0-4.0); HEMATOCRIT 41.8 % (39.0-51.0); HEMOGLOBIN 14.3 GM/DL (13.0-17.0); LYMPHOCYTE # 4.2 TH/MM3 (1.0-4.8); MEAN CELL VOLUME 99.2 FL (80.0-100.0); MEAN CORPUSCULAR HGB CONC 34.3 % (32.0-36.0); MEAN PLATELET VOLUME 11.2 FL (7.0-11.0); MONOCYTE # 1.3 TH/MM3 (0-0.9); NEUT % 44.6 % (16.0-70.0); PLATELET COUNT 172 TH/MM3 (150-450); RED BLOOD COUNT 4.22 MIL/MM3 (4.50-5.90)
[2017-05-01] MEDS ORDERED: PANTOPRAZOLE SOD 20 MG DELAYED RELEASE TAB PO SCH (09:00)
[2017-05-01] MEDS ORDERED: PARoxetine HCL 20 MG TAB PO SCH (09:00)
[2017-05-01] MEDS ORDERED: ATENOLOL 100 MG TAB PO SCH (09:00)
--- NOTE | 2017-05-01 09:07 | HHI.PR ---
Subjective Remarks The patient in the chair. He appears to not acute distress at this time. Speech is at baseline. He has unsteady gait however since he has a walker at home has been this way since is now worse his baseline. No lightheadedness. No pain. Denies shortness of breath, chest pain palpitations. Follows with Dr. Sneed as OP does not have a neurology Dr. patient says he feels better and he wants to go home. 2D echo and EEG are pending, if normal the patient can be discharged to follow-up as outpatient with PCP and neurology Objective Vitals Vital Signs Date Time Temp Pulse Resp B/P (MAP) Pulse Ox O2 Delivery O2 Flow Rate FiO2 05/01/17 04:26 97.9 70 18 143/73 (96) 97 160/93 (115) 05/01/17 03:05 78 05/01/17 00:11 97.8 75 18 97/55 (69) 94 108/70 (83) 04/30/17 20:00 94 04/30/17 19:56 97.7 85 18 107/57 (74) 97 04/30/17 18:43 97.7 97 20 153/77 (102) 96 04/30/17 17:48 04/30/17 16:00 72 16 142/80 (100) 99 Room Air 04/30/17 15:23 61 18 123/76 (92) 71 18 126/71 (89) 04/30/17 15:00 68 16 145/77 (99) 100 Nasal Cannula 2.00 04/30/17 14:00 67 16 128/75 (92) 100 Nasal Cannula 2.00 04/30/17 13:30 65 14 105/70 (82) 99 Nasal Cannula 2.00 04/30/17 13:07 83 16 100 Nasal Cannula 2.00 04/30/17 13:04 100 Nasal Cannula 2.00 04/30/17 13:04 18 99 Room Air 04/30/17 12:45 98.6 83 18 138/76 (96) 99 I/O 04/30/17 04/30/17 04/30/17 05/01/17 05/01/17 05/01/17 07:00 15:00 23:00 07:00 15:00 23:00 Intake Total 500 ml Output Total 175 ml 400 ml 400 ml Balance -175 ml 100 ml -400 ml Intake Oral 500 ml Output Urine Total 175 ml 400 ml 400 ml # Voids 1 1 Result Diagram: 05/01/17 0703 04/30/17 1315 Imaging Last Impressions Head CT 04/30/17 1248 Signed Impressions: Service Date/Time: Sunday, April 30, 2017 13:08 - CONCLUSION: 1. No acute intracranial abnormalities. Previous right craniotomy. Benitez Padilla MD Chest X-Ray 04/30/17 1248 Signed Impressions: Service Date/Time: Sunday, April 30, 2017 13:02 - CONCLUSION: 1. Subsegmental basilar airspace disease most characteristic of atelectasis. No effusion or pneumothorax. Benitez Padilla MD Knee X-Ray 04/30/17 0000 Signed Impressions: Service Date/Time: Sunday, April 30, 2017 13:03 - CONCLUSION: 1. No acute fracture identified. Medial subluxation of the distal femur on the proximal tibia. Advanced osteoarthritis. Postop changes above. Benitez Padilla MD Carotid Artery Ultrasound 04/30/17 0000 Signed Impressions: Service Date/Time: Sunday, April 30, 2017 21:42 - CONCLUSION: 1. Normal hemodynamic profile bilateral carotids. Mariusz Campbell MD Objective Remarks GENERAL: Well-nourished, well-developed male sitting up in bed, in no apparent distress. SKIN: No rashes, ecchymoses or lesions. Cool and dry. HEENT: Atraumatic. Normocephalic. No temporal or scalp tenderness. Pinpoint pupils. Extraocular motions intact. No scleral icterus. No injection or drainage. Nose without bleeding, purulent drainage or septal hematoma. Throat without erythema, tonsillar hypertrophy or exudate. Uvula midline. Airway patent. NECK: Trachea midline. No JVD or lymphadenopathy. Supple, nontender, no meningeal signs. CARDIOVASCULAR: Regular rate and rhythm without murmurs, gallops, or rubs. RESPIRATORY: Clear to auscultation. Breath sounds equal bilaterally. No wheezes , rales, or rhonchi. GASTROINTESTINAL: Abdomen soft, nontender, nondistended. No guarding. MUSCULOSKELETAL: Extremities without clubbing, cyanosis, or edema. Right knee with moderate sized joint effusion but full ROM and no tenderness to palpation or joint laxity. No significant warmth compared to left. No calf tenderness. Negative Homans sign bilaterally. NEUROLOGICAL: Awake and alert. Cranial nerves grossly intact. Motor and sensory grossly within normal limits. Five out of 5 muscle strength in all muscle groups. Speech slurred but apparently baseline due to CP. A/P Problem List: (1) Syncope ICD Code: R55 - Syncope and collapse Status: Acute (2) Knee effusion ICD Code: M25.469 - Effusion, unspecified knee Status: Acute (3) Hypertension ICD Code: I10 - Essential (primary) hypertension Status: Chronic (4) Depression ICD Code: F32.9 - Major depressive disorder, single episode, unspecified Status: Chronic (5) BPH (benign prostatic hyperplasia) ICD Code: N40.0 - Benign prostatic hyperplasia without lower urinary tract symptoms Status: Chronic Assessment and Plan 71 YOWM with CP, HTN, BPH, depression, and h/o alcohol abuse admitted for evaluation of syncope. 1. Syncope - Occurred while he was bending over and preceded by dizziness - Differentials: orthostatic, vasovagal, arrhythmia, ACS, dehydration - No orthostatic vital changes - Check echo, EEG pending - Monitor on tele - Troponin negative x 1 - EKG with NSR and no ST-changes - Head CT negative. Carotid ultrasound normal. - Received 2L NS boluses in the ED 2. Right knee effusion - XR with no acute fracture; signs of advanced OA - No limitation in range of motion or pain on exam - Ice PRN - If no significant improvement patient may benefit from tap - PT 3. HTN - Resume home atenolol 4. Depression - Resume home Paroxetine 5. H/O EtOH abuse - Pt states last drink >1 year ago - UDS + for opiates and benzos but expected if last dose of Suboxone was three days ago and pt reports being prescribed Klonopin - Ativan PRN - If any signs of withdraw will initiate CIWA protocol 6. BPH - Continue home Flomax 7. DVT prophylaxis - SCDs 2D echo and EEG are pending, if normal the patient can be discharged to follow -up as outpatient with PCP and neurology Discharge Planning Discharge home with home health in stable condition follow-up with PCP and consultants as outpatient. Medications per med reconciliation Diet healthy heart diet Activity ad linette. as tolerated Problem Qualifiers (1) Syncope: Qualified Codes: R55 - Syncope and collapse (2) Knee effusion: Qualified Codes: M25.461 - Effusion, right knee Shereen Brooke MD May 01, 2017 09:07
[2017-05-01 09:26] LABS: BICARBONATE 24.9 MEQ/L (21.0-32.0); CREATININE 0.78 MG/DL (0.60-1.30)
[2017-05-01 10:05] LABS: ACANTHOCYTES OCC (NORMAL)
[2017-05-01 10:06] LABS: BURR CELLS 1+ (NORMAL); HOWELL-JOLLY BODIES PRESENT (NONE SEEN)
[2017-05-01] MEDS ORDERED: cloNIDine HCL 0.1 MG TAB PO PRN (12:00)
--- NOTE | 2017-05-01 17:30 | ECHRPT ---
Indication: CONCLUSIONS The left ventricular systolic function is normal with an estimated ejection fraction in the range of 60-65% Normal left ventricular size. Wall thickness is normal. No regional wall motion abnormalities are present. Trace mitral valve regurgitation. There is trace tricuspid valve regurgitation. Trivial pulmonary valve regurgitation. BP: / HR: Rhythm: Sinus MEASUREMENTS (Male / Female) Normal Values Technical Quality:Good 2D ECHO LV Diastolic Diameter PLAX 4.3 cm 4.2 - 5.9 / 3.9 - 5.3 cm LV Systolic Diameter PLAX 2.9 cm IVS Diastolic Thickness 0.9 cm 0.6 - 1.0 / 0.6 - 0.9 cm LVPW Diastolic Thickness 0.9 cm 0.6 - 1.0 / 0.6 - 0.9 cm LV Relative Wall Thickness 0.4 RV Internal Dim ED PLAX 2.6 cm LVOT Diameter 2.0 cm LA Systolic Diameter LX 3.1 cm 3.0 - 4.0 / 2.7 - 3.8 cm LV Ejection Fraction MOD 4C 71.9 % LV Ejection Fraction 4C AL 73.6 % M-MODE Aortic Root Diameter MM 2.4 cm LA Systolic Diameter MM 2.6 cm LA Ao Ratio MM 1.1 AV Cusp Separation MM 1.9 cm DOPPLER AV Peak Velocity 140.0 cm/s AV Peak Gradient 7.8 mmHg LVOT Peak Velocity 114.0 cm/s LVOT Peak Gradient 5.2 mmHg AV Area Cont Eq pk 2.6 cm MV Area PHT 4.0 cm Mitral E Point Velocity 61.2 cm/s Mitral A Point Velocity 87.4 cm/s Mitral E to A Ratio 0.7 LV E' Lateral Velocity 6.0 cm/s Mitral E to LV E' Lateral Ratio 10.1 LV E' Septal Velocity 5.1 cm/s Mitral E to LV E' Septal Ratio 12.1 TR Peak Velocity 201.0 cm/s TR Peak Gradient 16.2 mmHg Right Atrial Pressure 10.0 mmHg Pulmonary Artery Systolic Pressu 26.2 mmHg Right Ventricular Systolic Press 26.2 mmHg PV Peak Velocity 102.0 cm/s PV Peak Gradient 4.2 mmHg FINDINGS LEFT VENTRICLE The left ventricular systolic function is normal with an estimated ejection fraction in the range of 60-65%. Normal left ventricular size. Wall thickness is normal. No regional wall motion abnormalities are present. RIGHT VENTRICLE Normal right ventricular size and systolic function. LEFT ATRIUM The left atrial size is normal. RIGHT ATRIUM The right atrial size is normal. ATRIAL SEPTUM Normal atrial septal thickness without atrial level shunting by limited color doppler interrogation. AORTA The aortic root and proximal ascending aorta are normal in size on limited imaging. MITRAL VALVE Trace mitral valve regurgitation. AORTIC VALVE Trileaflet aortic valve. No aortic valve stenosis or regurgitation. TRICUSPID VALVE Structurally normal tricuspid valve. There is trace tricuspid valve regurgitation. PULMONARY VALVE Trivial pulmonary valve regurgitation. VESSELS The inferior vena cava is normal in size. PERICARDIUM No pericardial effusion. Edgar Hernandez MD, FACC (Electronically Signed) Final Date:01 May 2017 17:28
--- NOTE | 2017-05-01 18:35 | EKG ---
Date Performed: 04/30/2017 Time Performed: 12:40:41 PTAGE: 71 years EKG: Sinus rhythm NORMAL ECG INTERPRETATION BASED ON A DEFAULT AGE OF 40 YEARS PREVIOUS TRACING 10/04/2016 @ 19.42 Since the prior tracing, there has been no significa nt change DOCTOR: Cathleen Harris Interpretating Date/Time 05/01/2017 18:33:52
--- NOTE | 2017-05-01 19:14 | HHI.DCPOC ---
Discharge Care Plan Goals to Promote Your Health * To prevent worsening of your condition and complications * To maintain your health at the optimal level Directions to Meet Your Goals Take your medications as prescribed Follow your dietary instruction Follow activity as directed Keep your appointments as scheduled Take your immunizations and boosters as scheduled If your symptoms worsen call your PCP, if no PCP go to Urgent Care Center or Emergency Room Smoking is Dangerous to Your Health. Avoid second hand smoke Call the 24-hour hour crisis hotline for domestic abuse at Shereen Brooek MD May 01, 2017 19:14
[2017-05-01] MEDS ORDERED: TAMSULOSIN HCL 0.4 MG CAP PO SCH (21:00)
--- NOTE | 2017-05-02 12:14 | MG ---
cc: Enrike Goldman MD EEG NUMBER: [id number] A 71-year-old who experienced a syncopal episode. Evidence of stage I and stage II sleep in the beginning with K-complexes and spindle activity in the background with slow theta 10-40 microvolts. An asymmetric right posterior slowing on fibr-sp-pyou comparison. Limited driving with photic stimulation. Reasonably good EEG variability reactivity. Sinus rhythm on single EKG. INTERPRETATION: Mild asymmetric right posterior slowing, possible breach rhythm. No active seizure activity noted. Mainly sleep state. Clinical correlation. Enrike Goldman MD MG/DL , 12:08 PM , 12:14 PM
== END 2017-05-01 21:37 | disposition home or self-care (01) ==
LOC: NEPC 12:29 → NEDA 16:13 → NEPGCP 17:48
PROVIDERS: ADMIT Hospitalist; ATTEND Hospitalist
DX: R55 Syncope and collapse (principal); M62.82 Rhabdomyolysis; R26.81 Unsteadiness on feet; R42 Dizziness and giddiness; I10 Essential (primary) hypertension; G80.9 Cerebral palsy, unspecified; M25.461 Effusion, right knee; B19.20 Unspecified viral hepatitis C without hepatic coma; B19.10 Unspecified viral hepatitis B without hepatic coma; F32.9 Major depressive disorder, single episode, unspecified; N40.0 Benign prostatic hyperplasia without lower urinary tract symptoms; Z79.899 Other long term (current) drug therapy
CPT/HCPCS: 70450; 71045; 73564; 80048; 80053; 80307; 81001; 82140; 82550; 82552; 83605; 83735; 84484; 85025; 85610; 85730; 93005; 93306; 93880; 95819; 96360; 96361; 97162; 99285; G0378; G8987; G8988; J7030

== ENCOUNTER 2017-05-06 13:22 | Observation (INO) | payer MEDICARE, OTHER ==
[2017-05-06] VITALS (8 sets, daily range): BP systolic 131–155; BP diastolic 77–90; PULSE 76–92; RESP 9–20; TEMP 97.6–98.1; O2SAT 93–98
[~2017-05-06] VITALS: Ht 167.6 cm; Wt 65.8 kg
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
[2017-05-06] MEDS ORDERED: SODIUM CHLORIDE 0.9% FLUSH 10 ML FLUSH IV FLUSH PRN ×2 (13:45→15:45)
[2017-05-06 13:46] LABS: AUTOMATED NEUTROPHIL # 6.3 TH/MM3 (1.8-7.7); BASOPHIL # 0.1 TH/MM3 (0-0.2); BASOPHIL % 1.1 % (0.0-2.0); EOSINOPHIL # 0.3 TH/MM3 (0-0.4); EOSINOPHIL % 3.2 % (0.0-4.0); HEMATOCRIT 43.5 % (39.0-51.0); HEMOGLOBIN 14.4 GM/DL (13.0-17.0); LYMPH % 26.2 % (9.0-44.0); LYMPHOCYTE # 2.8 TH/MM3 (1.0-4.8); MEAN CELL VOLUME 98.7 FL (80.0-100.0); MEAN CORPUSCULAR HEMOGLOBIN 32.8 PG (27.0-34.0); MEAN CORPUSCULAR HGB CONC 33.2 % (32.0-36.0); MEAN PLATELET VOLUME 10.3 FL (7.0-11.0); MONO % 10.4 % (0.0-8.0); MONOCYTE # 1.1 TH/MM3 (0-0.9); NEUT % 59.1 % (16.0-70.0); PLATELET COUNT 195 TH/MM3 (150-450); RED CELL DISTRIBUTION WIDTH 12.3 % (11.6-17.2); WHITE BLOOD COUNT 10.6 TH/MM3 (4.0-11.0)
[2017-05-06 13:59] LABS: CHLORIDE 105 MEQ/L (98-107); SODIUM (NA) 138 MEQ/L (136-145)
[2017-05-06 14:04] LABS: ALBUMIN 3.4 GM/DL (3.4-5.0); CALCIUM 8.1 MG/DL (8.5-10.1)
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
[2017-05-06 14:05] LABS: BICARBONATE 27.6 MEQ/L (21.0-32.0); BLOOD UREA NITROGEN 32 MG/DL (7-18); GLUCOSE,RANDOM 95 MG/DL (74-106)
[2017-05-06 14:07] LABS: ALT (GPT) 23 U/L (12-78); AST (GOT) 27 U/L (15-37); CREATININE 0.87 MG/DL (0.60-1.30); GLOMERULAR FILTRATION RATE 87 ML/MIN (>89)
[2017-05-06 14:08] LABS: TOTAL BILIRUBIN ADULT 0.4 MG/DL (0.2-1.0)
[2017-05-06 14:09] LABS: ALKALINE PHOSPHATASE 63 U/L (45-117); TOTAL PROTEIN 7.3 GM/DL (6.4-8.2)
[2017-05-06 14:10] LABS: TROPONIN I LESS THAN 0.02 NG/ML (0.02-0.05)
--- NOTE | 2017-05-06 14:19 | RADRPT ---
EXAM DATE/TIME: 05/06/2017 14:02 [facility] COMPARISON: CT BRAIN W/O CONTRAST, April 30, 2017, 13:08. INDICATIONS : Fell a few days ago, syncope. RADIATION DOSE: 62.49 CTDIvol (mGy) MEDICAL HISTORY : Cardiovascular disease. Hepatitis. Cerebral pasly. SURGICAL HISTORY : Splenectomy. ENCOUNTER: Initial ACUITY: 1 day PAIN SCALE: 4/10 LOCATION: top of head small laceration. TECHNIQUE: Multiple contiguous axial images were obtained of the head. Using automated exposure control and adj ustment of the mA and/or kV according to patient size, radiation dose was kept as low as reasonably a chievable to obtain optimal diagnostic quality images. DICOM format image data is available electro nically for review and comparison. FINDINGS: CEREBRUM: The ventricles are normal for age. No evidence of midline shift, mass lesion, hemorrhage or acute in farction. Stable area of lacunar infarct involving the left periventricular white matter. No extra-ax ial fluid collections are seen. POSTERIOR FOSSA: The cerebellum and brainstem are intact. The 4th ventricle is midline. The cerebellopontine angle i s unremarkable. EXTRACRANIAL: The visualized portion of the orbits is intact. SKULL: Stable right craniotomy changes.. No evidence of skull fracture. CONCLUSION: Stable exam with no acute intracranial abnormality.. Shanae Smith MD on May 06, 2017 at 14:15 Board Certified Radiologist. This report was verified electronically.
[2017-05-06 14:28] LABS: INTERNATIONAL NORMALIZED RATIO 1.1 RATIO; PROTHROMBIN TIME - PATIENT 10.7 SEC (9.8-11.6)
[2017-05-06] MEDS ORDERED: LEVOFLOXACIN 750 MG PREMIX INJ 150 ML IV ONE (15:15)
[2017-05-06] MEDS ORDERED: metroNIDAZOLE 500 MG INJ 100 ML IV ONE (15:15)
[2017-05-06 15:20] LABS: BILIRUBIN, URINE NEG (NEG); BLOOD, URINE NEG (NEG); GLUCOSE,URINE NEG (NEG); KETONE, URINE NEG (NEG); NITRITE,URINE NEG (NEG); PH, URINE 5.5 (5.0-8.5); URINE COLOR YELLOW (YELLW/STRAW); URINE LEUKOCYTE ESTERASE NEG (NEG)
[2017-05-06 15:40] LABS: WBC, URINE 0-2 /hpf (0-5)
--- NOTE | 2017-05-06 15:47 | RADRPT ---
EXAM DATE/TIME: 05/06/2017 15:16 [facility] COMPARISON: CHEST SINGLE AP, October 04, 2016, 19:36. CHEST SINGLE AP, April 30, 2017, 13:02. CHEST SINGLE AP, M 2017, 13:41. INDICATIONS : Rule out pneumonia. MEDICAL HISTORY : Cardiovascular disease. Hepatitis. Cerebral pasly. SURGICAL HISTORY : Splenectomy. ENCOUNTER: Initial ACUITY: 1 day PAIN SCORE: 0/10 LOCATION: Bilateral chest FINDINGS: There are chronic interstitial changes throughout the pulmonary parenchyma. There is a small amount o f fluid within the fissure on the left. The heart is normal in size.. The osseous structures are miguel sly intact. CONCLUSION: 1. Chronic interstitial changes. No definite pneumonia identified. Stable exam compared to previous. Ottoniel Yen MD on May 06, 2017 at 15:43 Board Certified Radiologist. This report was verified electronically.
[2017-05-06 16:07] LABS: ACETAMINOPHEN LESS THAN 2.0 MCG/ML (10.0-30.0)
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
--- NOTE | 2017-05-06 16:30 | HHI.FF ---
Face to Face Verification Diagnosis: (1) Fall at home (2) Weakness Physical Therapy Order: Evaluate and Treat, Improve ambulation, Strength and gait training Home Health Nursing Order: Medical education Nursing assessment with vital signs I have seen patient Darren Serrano on 05/06/17. My clinical findings support the need for the requested home health care services because: Med compliance is questionable Limited ability to care for self I certify that my clinical findings support that this patient is homebound because: Unsteady gait/balance Unsafe to leave home unassisted Mau Greenwood May 06, 2017 16:30
[2017-05-06] MEDS: SODIUM CHLOR 0.9% 1000 ML INJ 1,000 ML IV SCH (17:04)
--- NOTE | 2017-05-06 18:11 | EKG ---
Date Performed: 05/06/2017 Time Performed: 13:38:20 PTAGE: 71 years EKG: Sinus rhythm WITH OCCASIONAL VENTRICULAR PREMATURE COMPLEXES BORDERLINE ECG Compared to PREVIOUS TRACING , PVCs are new. PREVIOUS TRACIN04/30/2017 12.40 DOCTOR: Kenneth Simon Interpretating Date/Time 05/06/2017 18:10:15
[2017-05-06] MEDS: SODIUM CHLORIDE 0.9% FLUSH 10 ML FLUSH IV FLUSH SCH (19:35)
[2017-05-06] MEDS ORDERED: TAMSULOSIN HCL 0.4 MG CAP PO SCH (21:00)
[2017-05-07] VITALS (9 sets, daily range): BP systolic 103–156; BP diastolic 57–98; PULSE 72–86; RESP 9–33; TEMP 97.9–98.6; O2SAT 90–94
[2017-05-07] MEDS: SODIUM CHLOR 0.9% 1000 ML INJ 1,000 ML IV SCH (00:04)
[2017-05-07 05:29] LABS: AUTOMATED NEUTROPHIL # 4.2 TH/MM3 (1.8-7.7); BASOPHIL # 0.1 TH/MM3 (0-0.2); BASOPHIL % 0.9 % (0.0-2.0); EOSINOPHIL # 0.7 TH/MM3 (0-0.4); EOSINOPHIL % 7.7 % (0.0-4.0); HEMATOCRIT 40.3 % (39.0-51.0); HEMOGLOBIN 13.3 GM/DL (13.0-17.0); LYMPH % 29.5 % (9.0-44.0); LYMPHOCYTE # 2.7 TH/MM3 (1.0-4.8); MEAN CELL VOLUME 99.6 FL (80.0-100.0); MEAN CORPUSCULAR HEMOGLOBIN 32.8 PG (27.0-34.0); MEAN PLATELET VOLUME 9.8 FL (7.0-11.0); MONO % 15.9 % (0.0-8.0); MONOCYTE # 1.5 TH/MM3 (0-0.9); PLATELET COUNT 180 TH/MM3 (150-450); RED BLOOD COUNT 4.04 MIL/MM3 (4.50-5.90); RED CELL DISTRIBUTION WIDTH 12.1 % (11.6-17.2); WHITE BLOOD COUNT 9.2 TH/MM3 (4.0-11.0)
[2017-05-07 05:36] LABS: CALCIUM 8.2 MG/DL (8.5-10.1)
[2017-05-07 05:40] LABS: CREATININE 0.65 MG/DL (0.60-1.30)
[2017-05-07] MEDS: SODIUM CHLORIDE 0.9% FLUSH 10 ML FLUSH IV FLUSH SCH (07:22)
[2017-05-07] MEDS ORDERED: PARoxetine HCL 20 MG TAB PO SCH (09:00)
[2017-05-07] MEDS ORDERED: PANTOPRAZOLE SOD 20 MG DELAYED RELEASE TAB PO SCH (09:00)
[2017-05-07] MEDS ORDERED: ATENOLOL 50 MG TAB PO SCH (09:00)
--- NOTE | 2017-05-07 10:17 | HHI.PR ---
Subjective Remarks Patient seen and examined today for follow-up fall at home. Patient denies any complaints. Patient wants to be discharged home. Vital signs are stable, afebrile Objective Vitals Vital Signs Date Time Temp Pulse Resp B/P (MAP) Pulse Ox O2 Delivery O2 Flow Rate FiO2 05/07/17 04:00 86 05/07/17 04:00 97.9 86 13 103/69 (80) 91 05/07/17 00:00 98.6 82 10 112/80 (91) 93 05/07/17 00:00 82 05/06/17 20:00 97.6 80 16 131/85 (100) 96 05/06/17 20:00 80 05/06/17 19:00 76 9 98 05/06/17 18:24 98.0 149/80 (103) 05/06/17 17:50 80 80 150/90 (110) 95 05/06/17 17:00 79 18 150/83 (105) 94 Room Air 05/06/17 15:22 82 17 151/78 (102) 95 Room Air 05/06/17 14:51 80 16 133/81 (98) 95 Room Air 05/06/17 13:45 92 Room Air 05/06/17 13:45 Room Air 05/06/17 13:33 98.1 92 20 155/77 (103) 93 I/O 05/06/17 05/06/17 05/06/17 05/07/17 05/07/17 05/07/17 07:00 15:00 23:00 07:00 15:00 23:00 Intake Total 150 ml 1600 ml Output Total 500 ml Balance 150 ml 1100 ml Intake IV Total 150 ml 1600 ml Output Urine Total 500 ml Result Diagram: 05/07/1717 05/07/17 0517 Objective Remarks GENERAL: Well-developed, well-nourished, in no acute distress. alert and orientated HEENT: Head is normocephalic without any lesions or masses noted. Facial features are symmetric. Eyes: Extraocular muscles are intact. Conjunctivae were clear. NECK: Supple without any masses. Trachea midline no deviation. No JVD, CARDIAC: Regular rhythm, regular rate. S1/S2 are heard. No murmurs gallops or rubs. LUNGS: Clear to auscultation bilaterally. No wheeze, rhonchi or rales. No use of accessory muscles on inspiration or expiration. ABDOMEN: Soft, nontender. Nondistended. Bowel sounds heard in all 4 quadrants. No organomegaly or masses. Negative rebound, negative guarding EXTREMITIES: No edema, pulses are equal bilaterally. No cyanosis or clubbing NEUROLOGY: Mood and affect appear appropriate. Cranial nerves II through XII grossly intact. Moving all extremities, speech is clear Urinary Catheter: No Vascular Central Line Catheter: No A/P Assessment and Plan Recurrent falls at home Patient specifically indicates that he did not have any loss of consciousness this time. Patient with recent admission 04/30/17 with full syncopal workup performed at that time which is unremarkable Patient's recurrent falls could be secondary to medication misuse to include Suboxone, benzodiazepines, marijuana Physical therapy evaluation indicated that patient will require home health care physical therapy Orthostatic vitals, stable Continue IV fluids Case management to arrange outpatient home health care physical therapy, nursing care Hypertension, benign prostatic hypertrophy, depression Continue home medications DVT prevention Sequential compression devices Discharge Planning Discharge home in stable condition Activity: Ad linette. Diet: Healthy heart diet Medication per medication reconciliation Follow-up with primary medical doctor in 1 week Mau Greenwood May 07, 2017 10:17
--- NOTE | 2017-05-07 13:28 | HHI.DCPOC ---
Discharge Care Plan Diagnosis: (1) Fall at home Goals to Promote Your Health * To prevent worsening of your condition and complications * To maintain your health at the optimal level Directions to Meet Your Goals Take your medications as prescribed Follow your dietary instruction Follow activity as directed Keep your appointments as scheduled Take your immunizations and boosters as scheduled If your symptoms worsen call your PCP, if no PCP go to Urgent Care Center or Emergency Room Smoking is Dangerous to Your Health. Avoid second hand smoke Call the 24-hour hour crisis hotline for domestic abuse at Mau Greenwood May 07, 2017 13:28
== END 2017-05-07 15:35 | disposition home health service (06) ==
LOC: PHED 13:22 → INTOOBSV 15:33 → PHEDA 15:33 → UNDOADMIN 15:33 → PHICU 18:23
PROVIDERS: ADMIT Hospitalist; ATTEND Hospitalist
DX: R55 Syncope and collapse (principal); S01.01XA Laceration without foreign body of scalp, initial encounter; I10 Essential (primary) hypertension; R29.6 Repeated falls; W01.190A Fall on same level from slipping, tripping and stumbling with subsequent striking against furniture, initial encounter; Y92.019 Unspecified place in single-family (private) house as the place of occurrence of the external cause; F32.9 Major depressive disorder, single episode, unspecified; M54.9 Dorsalgia, unspecified; G89.29 Other chronic pain; F10.21 Alcohol dependence, in remission; B19.10 Unspecified viral hepatitis B without hepatic coma; B19.20 Unspecified viral hepatitis C without hepatic coma; G80.9 Cerebral palsy, unspecified; N40.0 Benign prostatic hyperplasia without lower urinary tract symptoms; Z90.81 Acquired absence of spleen; Z87.891 Personal history of nicotine dependence; R42 Dizziness and giddiness
CPT/HCPCS: 70450; 71045; 71046; 80048; 80053; 80307; 81001; 84443; 84484; 85025; 85610; 85730; 93005; 96365; 96376; 97162; 99285; G0378; G8987; G8988; J1956; J7030